=== PATIENT | female | born 1945 | race Caucasian/White ===

== ENCOUNTER 2020-03-25 02:16 | Inpatient (IN) | payer MEDICARE, SELFPAY ==
[2020-03-25] VITALS (18 sets, daily range): BP systolic 91–148; BP diastolic 39–60; PULSE 64–94; RESP 11–18; TEMP 35.9–37.2; O2SAT 00–99; BMI 28.0; BMI 28.5
--- NOTE | 2020-03-25 | CT_ITS ---
EXAMINATION: CT CHEST, ABDOMEN AND PELVIS WITHOUT CONTRAST CLINICAL INFORMATION: Shortness of breath. Abdominal pain. COMPARISON: Same day chest radiograph. TECHNIQUE: Contiguous axial thin section helical images of the chest, abdomen and pelvis were performed without oral or IV contrast. The data set was reformatted in the coronal and sagittal planes and reviewed on an independent workstation. Please note that evaluation for inflammatory and infectious processes is significantly limited due to the lack of IV contrast. The examination is also limited secondary to patient motion artifact. DLP: 339 mGy-cm. FINDINGS: The heart is of normal size. There is no pericardial effusion. There is neither mediastinal, hilar nor axillary lymphadenopathy. There are no chest wall masses. Review of lung windows demonstrates that there are no pneumothoraces. There is a large right pleural effusion with associated atelectasis to the right lower lobe. There are biapical manifestations of emphysema. The liver is of normal size and attenuation without focal lesions nor intrahepatic biliary ductal dilation. A normal gallbladder is identified. There is no wall thickening or discernible pericholecystic fluid. The spleen, pancreas, adrenal glands are unremarkable. Both kidneys are of normal size and attenuation without hydronephrosis or nephrolithiasis. There is no abdominal free fluid. There is neither mesenteric nor retroperitoneal lymphadenopathy. There is a moderate amount of stool throughout the colon; otherwise, unremarkable unopacified loops of small and large bowel are identified. There is no pelvic free fluid. A Archer catheter is present within the urinary bladder which is nearly empty. There is neither pelvic nor inguinal lymphadenopathy. Anasarca is noted within the pelvis and visualized proximal lower extremities. Bone windows: Neither sclerotic nor lytic bone lesions are identified. IMPRESSION: Significantly limited examination as stated above. The examination is limited in evaluation for inflammatory and infectious processes due to the lack of IV contrast. As well evaluation is significantly limited due to patient motion artifact. Large right pleural effusion with associated airspace disease. Moderate amount of stool throughout the colon. Anasarca. Automated exposure control (Care Dose) Adjustment of the mA and/or kv according to patient size (this includes techniques or standardized protocols for targeted exams where dose is matched to indication / reason for exam; i.e. extremities or head).
--- NOTE | 2020-03-25 | XR_ITS ---
EXAMINATION: CHEST 1 VIEW CLINICAL INFORMATION: Cough. COMPARISON: 07/28/2018. TECHNIQUE: An AP view of the chest is provided. FINDINGS: The cardiac silhouette is not enlarged. The mediastinal and hilar contours are unremarkable. There are no pneumothoraces. There is a moderate right pleural effusion with associated airspace disease. The osseous structures are stable. IMPRESSION: Moderate right pleural effusion with associated airspace disease.
--- NOTE | 2020-03-25 | ECG_ITS ---
Test Reason : STROKE Blood Pressure : / mmHG Vent. Rate : 067 BPM Atrial Rate : 067 BPM P-R Int : 154 ms QRS Dur : 174 ms QT Int : 506 ms P-R-T Axes : 073 199 011 degrees QTc Int : 534 ms Poor data quality, interpretation may be adversely affected Normal sinus rhythm Right bundle branch block Inferior infarct (cited on or before 25-MAR-2020) Anteroseptal infarct (cited on or before 25-MAR-2020) Abnormal ECG When compared with ECG of 25-MAR-2020 02:54, Sinus rhythm has replaced Ectopic atrial rhythm Serial changes of Anteroseptal infarct Present Referred By: Melania Hassan Electronically Signed By:EMILIO KENDRICK
--- NOTE | 2020-03-25 02:17 | PC.NURSE ---
PT PRESENTS VIA EMS FOR STROKE ALERT. PER EMS PT WAS HELPING HER IN BATHROOM WHEN HER LEGS GAVE OUT. DENIES HEAD STRIKE, DENIES LOC. EMS CALLED FOR LIFT ASSIST. PT FOUND TO HAVE RIGHT SIDED WEAKNESS AND SLURRED SPEECH UPON EMS ARRIVAL MOSTLY RESOLVING BY ARRIVAL TO ED. DENIES PREVIOUS STROKE HX. ON DAILY ASPIRIN. THIS RN TO CT WITH PT UPON ARRIVAL. PT A&O TO PERSON PLACE AND SITUATION. REPORTS YEAR TO BE 2013. DENIES PAIN, STATES SHE FEELS WEAKER THAN NORMAL. EQUAL HANDGRASPS BILATERALLY, FACIAL SYMMETRY. SIGNIFICANT PITTING EDEMA NOTED TO BLE. +2-3 BILATERALLY.
--- NOTE | 2020-03-25 02:18 | ECG_ITS ---
Test Reason : STROKE Blood Pressure : / mmHG Vent. Rate : 061 BPM Atrial Rate : 061 BPM P-R Int : 176 ms QRS Dur : 172 ms QT Int : 488 ms P-R-T Axes : 133 180 -16 degrees QTc Int : 491 ms Suspect limb lead reversal, interpretation assumes no reversal Unusual P axis, possible ectopic atrial rhythm Right bundle branch block Cannot rule out Inferior infarct , age undetermined Anteroseptal infarct , age undetermined Abnormal ECG When compared with ECG of 28-JUL-2018 21:28, Ectopic atrial rhythm has replaced Sinus rhythm Vent. rate has decreased BY 47 BPM Right bundle branch block is now Present Anteroseptal infarct is now Present Referred By: Melania Hassan Electronically Signed By:EMILIO KENDRICK
--- NOTE | 2020-03-25 02:18 | CT_ITS ---
EXAMINATION: CT HEAD WITHOUT CONTRAST CLINICAL INFORMATION: Right-sided weakness. COMPARISON: 01/16/2017. TECHNIQUE: Contiguous helical images of the brain were obtained without IV contrast. Multiplanar reconstructions were performed. DLP: 747 mGy-cm. FINDINGS: There are no pathologic extra-axial fluid collections. The lateral, third, fourth ventricles are prominent, though stable, age-appropriate and concordant with the appearance of the sulci. There is no evidence for acute intraparenchymal hemorrhage or infarct. There is periventricular low-attenuation indicative of small vessel disease. There is neither mass nor mass effect. There is no shift of midline structures. The paranasal sinuses and mastoid air cells are clear. There are no osseous lesions. IMPRESSION: No evidence for acute intracranial injury. Stable age-appropriate appearance of the brain. The aforementioned was communicated to Dr. Hassan at 0245 hours. Automated exposure control (Care Dose) Adjustment of the mA and/or kv according to patient size (this includes techniques or standardized protocols for targeted exams where dose is matched to indication / reason for exam; i.e. extremities or head).
[2020-03-25 02:25] LABS: Glucose, Whole Blood 130 mg/dL (60-115); Prothrombin Time Whole Bld POC 13.4 sec (11.1-13.5); ~PT, ~INR - Anti Coag Clinic 1.1 (0.9-1.1)
--- NOTE | 2020-03-25 03:03 | ED.NEUROSD ---
HPI - Neuro Symptoms/Deficit General Chief Complaint: Stroke Stated Complaint: STROKE Time Seen by Provider: 03/25/20 02:17 Source: patient, family and EMS Mode of arrival: EMS History of Present Illness HPI Narrative: This is a 74-year-old female with multiple medical comorbidities to include Parkinson's, diabetes who presents via EMS with presenting complaints as per EMS that they were called for a lift assist at the home and then they felt that the patient was noted to have slurred speech and right-sided weakness that on arrival during evaluation they feel has resolved. EMS states that they assisted the patient in her bathroom at home. Later information gathered from the at the bedside and he states that patient has been like this all day and says that this morning she experienced an inability to get to the toilet from her wheelchair and was slumped over and so the called EMS for assistance. He states that she has not had oral intake all day yesterday and that she has canceled multiple doctors appointments. Related Data Home Medications Medication Instructions Recorded Confirmed amitriptyline 1 tab PO BID 03/25/20 03/25/20 aspirin 81 mg PO DAILY 03/25/20 03/25/20 atorvastatin 1 tab PO DAILY 03/25/20 03/25/20 carbidopa-levodopa 1 tab PO TID 03/25/20 03/25/20 coenzyme Q10 [CoQ-10] 200 mg PO DAILY 03/25/20 03/25/20 irehvurniug-ycmdfvtcm-myavlmjl 1 puff INHALATION DAILY 03/25/20 03/25/20 [Trelegy Ellipta] gabapentin 1 tab PO BEDTIME 03/25/20 03/25/20 insulin glargine U-300 conc 13 unit SUBCUT DAILY 03/25/20 03/25/20 [Toujeo SoloStar U-300 Insulin] lisinopril 1 tab PO DAILY 03/25/20 03/25/20 metoprolol tartrate 1 tab PO BID 03/25/20 03/25/20 metoprolol tartrate 1 tab PO BID 03/25/20 03/25/20 multivitamin 1 tab PO DAILY 03/25/20 03/25/20 omeprazole 1 cap PO BID 03/25/20 03/25/20 polyethylene glycol 3350 [Miralax] 17 g PO DAILY 03/25/20 03/25/20 primidone 1 tab PO DAILY 03/25/20 03/25/20 sennosides [senna] 8.6 mg PO BID 03/25/20 03/25/20 sitagliptin-metformin [Janumet XR] 2 tab PO BEDTIME 03/25/20 03/25/20 Allergies Allergy/AdvReac Type Severity Reaction Status Date / Time Iodinated Contrast Media Allergy Unknown RASH Verified 03/25/20 03:55 [CONTRAST, IV] morphine [Morphine] Allergy Unknown RESP. Verified 03/25/20 03:55 ARREST, anaphylaxis IVP dye Allergy Unknown kidney Uncoded 12/02/19 00:00 failure Review of Systems Review of Systems: Pertinent positives and negatives as stated in HPI 10 point review of systems is otherwise negative. [facility] Past Medical History Medical History Nocturnal oxygen desaturation Parkinson disease Social History Social History Advance Directives: No Physical Exam Vital Signs and I&O and Narrative: Vital Signs and I&O: Vital Signs Temp 98.6 F 03/25/20 08:47 Pulse 67 03/25/20 08:47 Resp 16 03/25/20 08:47 BP 123/60 03/25/20 08:47 Pulse Ox 96 03/25/20 07:33 Intake & Output 03/24/20 03/25/20 03/25/20 18:59 06:59 18:59 Intake Total 1050 / 1050 Balance 1050 / 1050 Weight 69.6 kg Intake: Intake, IV Amoun t 1050 / 1050 0.9 % Sodium C hloride 1,000 ml 1000 / 1000 @ Wide Open IV .Q0M STA Rx#: [id number] cefTRIAXone so dium 1 gm In 0.9 50 / 50 % Sodium Chlor gregorio 50 ml @ 100 mls/hr IV ONCE ONE Rx#: [id number] Body Mass Index 28.0 VITAL SIGNS: Reviewed. GENERAL: Well developed, no acute distress, drowsy. HEAD: Normocephalic/atraumatic, EYES: PERRLA, EOMI intact without pain, no nystagmus/pallor/icterus noted EARS: Ext canals without abnormality, TMs non-bulging and non-erythematous NOSE: Nares patent bilateral OROPHARYNX: no oral lesions noted, posterior pharynx clear and non-erythematous dry mucosa NECK: Supple, no adenopathy LUNGS: Decreased breath sounds on the right and audible ronchi without wheeze. SpO2<96 on 4L nasal cannula> CARDIOVASCULAR: Regular rate, no noted murmurs, no JVD but bilateral full length lower leg edema noted ABDOMEN: Soft, non-tender, there is a noted ventral hernia that is easily reducible and no evidence to suggest incarceration/strangulation No rigidity. No guarding. No palpable masses or hernias noted MUSCULOSKELETAL: No tenderness, deformities, or effusions noted on gross inspection. EXTREMITIES: No cyanosis, clubbing or edema. SKIN: Inspection of the skin reveals no rashes, ulcerations, jaundice, pallor, or petechiae. NEUROLOGIC: Drowsy, but oriented x 3. Strength and sensation to light touch were grossly intact and initial NIHSS Course Course Hospital Course: On initial evaluation patient's NIH stroke scale was noted to be 2 and reported be improving from initial observation without gross deficits at present and so not felt to be a tPA candidate and highly doubt ischemic event at this point. On review of CT scan there were no acute intracranial pathologies noted. Due to patient's persistent hypotension in combination with hypothermia she was empirically started on the sepsis protocol due to hypothermia and hypotension in conjunction with suspected pulmonary etiology. There were initial concerns for fluid overload given the appearance patient's bilateral lower extremities and so initial IV fluid resuscitation was withheld, however lab work and antibiotics were initiated. On further evaluation of patient's clinical status, the decision was made to pursue this sepsis IV fluids which were calculated to be 2.1 L. Reevaluation(s) Reevaluation #1: Despite antibiotics and fluid resuscitation patient continued to have persistent hypotension while temperature and remaining objective parameters continue to improve. A CT scan to better evaluate chest/abdomen /pelvis but there were no acute findings within the abdomen and a large right-sided pleural effusion was again demonstrated. Reevaluation #2: There is a possibility that patient may have had a vasovagal episode or that this is a mixture of medication effect. During the placement of her central line and after having received 100 mg of hydrocortisone patient's level of alertness drastically improved but with only mild improvement Of blood pressure. the chest x-ray to confirm placement of the right IJ demonstrated the tip in the left innominate. This case was discussed with the ICU pyrometer operator who is agreeable for admission. Lactic acid value did show improvement after fluid resuscitation, but little evidence to further support a sepsis etiology or acute intracranial pathology. In addition, patient was treated for hyperkalemia with calcium gluconate / insulin/ D 50 and on repeat lab work there is noted improvement. Procedures Central Line Placement Right IJ: Time Out Performed: Yes Patient Placed on Monitor/Pulse Ox: Yes MD Prep: mask, gown and gloves Central Line Prep: Chlorhexidine scrub Ultrasound Used for Placement: Yes Central Line Lumen Inserted: triple Post Procedure: sutured in place, good blood return, all ports aspirated, flushed, capped and sterile dressing applied Post Procedure X-Ray: tip of catheter in good position and no pneumothorax seen Patient Tolerated Procedure: well Complications: none MDM - Neuro Symptoms/Deficit MDM Narrative Medical decision making narrative: Sepsis, stroke, metabolic derangement Medical Records Attestation: I reviewed the patient's medical records. Lab Data Attestation: I reviewed the patient's lab results. Result diagrams: 03/25/20 03:23 03/25/20 06:48 Labs: Lab Results 03/25/20 03/25/20 03/25/20 Range/Units 02:20 02:20 03:23 WBC 7.6 (4.8-10.8) X10*3/uL RBC 3.92 L (4.20-5.50) X10*6/uL Hgb 11.5 L (12.0-16.0) g/dl Hct 36.5 L (37-47) % MCV 93.1 (80-98) fL MCH 29.3 (27.0-33.0) pg MCHC 31.5 (31.0-35.0) g/dl RDW 18.8 H (11.0-16.0) % Plt Count 272 (160-400) X10*3/uL MPV 10.3 (9.4-12.3) fL Immature Gran % (Auto) 0.4 (0.0-0.4) % Neut % (Auto) 74.2 H (45-73) % Lymph % (Auto) 15.4 L (20-40) % [place] % (Auto) 8.2 (2-11) % Eos % (Auto) 1.1 (0-4) % Baso % (Auto) 0.7 (0-2) % Neut # (Auto) 5.7 (2.0-8.3) X10*3/uL Lymph # (Auto) 1.2 (1.2-4.9) X10*3/uL [place] # (Auto) 0.6 (0.1-1.2) X10*3/uL Eos # (Auto) 0.1 (0.0-0.4) X10*3/uL Baso # (Auto) 0.1 (0.0-0.2) X10*3/uL Abs Immat Gran (auto) 0.03 (0.00-0.03) X10*3/uL Absolute Nucleated RBC 0.000 (0.0-0.012) X10*3/uL Nucleated RBC % (auto) 0.0 (0.0-0.2) /100WBC PT (10.8-13.0) SEC Whole Blood PT 13.4 (11.1-13.5) sec INR (0.9-1.1) Whole Blood INR 1.1 (0.9-1.1) APTT (24.1-38.0) SEC VBG pH (7.32-7.43) VBG pCO2 mmhg VBG Oxygen Liters/Min VBG pO2 mmhg VBG HCO3 mmol/L VBG O2 Saturation % VBG Base Excess mmol/L Sodium (135-145) mmol/L Potassium (3.3-5.1) mmol/l Chloride (96-108) mmol/L Carbon Dioxide (22-29) mmol/L Anion Gap (12-20) BUN (9-16) mg/dL Creatinine (0.5-1.4) mg/dL Estim Creat Clear Calc Estimated GFR POC Glucose 130 H (60-115) mg/dL Random Glucose (60-115) mg/dL Lactic Acid (0.5-2.0) mmol/L Lactic Acid Fup @ 2Hr (0.5-2.0) mmol/L Calcium (8.4-10.2) mg/dL Total Bilirubin (0.0-1.0) mg/dL AST (5-31) U/L ALT (0-31) U/L Alkaline Phosphatase (39-117) U/L Total Creatine Kinase (26-140) U/L Troponin I High Sens (<3.5-17.0) ng/L Total Protein (6.5-8.0) g/dL Albumin (3.5-5.0) g/dL TSH (0.32-4.0) mIU/mL Urine Color Urine Appearance Urine pH (5.0-8.0) Ur Specific [place] (1.005-1.025) Urine Protein (NEG-TRACE) MG/DL Urine Glucose (UA) (NEG) MG/DL Urine Ketones (NEG) MG/DL Urine Blood (NEG) Urine Nitrite (NEG) Ur Leukocyte Esterase (NEG) Urine RBC (0) /HPF Urine WBC (0-4) /HPF Ur Squamous Epith Cells /LPF Urine Bacteria /LPF 03/25/20 03/25/20 03/25/20 Range/Units 03:23 03:23 03:23 WBC (4.8-10.8) X10*3/uL RBC (4.20-5.50) X10*6/uL Hgb (12.0-16.0) g/dl Hct (37-47) % MCV (80-98) fL MCH (27.0-33.0) pg MCHC (31.0-35.0) g/dl RDW (11.0-16.0) % Plt Count (160-400) X10*3/uL MPV (9.4-12.3) fL Immature Gran % (Auto) (0.0-0.4) % Neut % (Auto) (45-73) % Lymph % (Auto) (20-40) % [place]he % (Auto) (2-11) % Eos % (Auto) (0-4) % Baso % (Auto) (0-2) % Neut # (Auto) (2.0-8.3) X10*3/uL Lymph # (Auto) (1.2-4.9) X10*3/uL [place] # (Auto) (0.1-1.2) X10*3/uL Eos # (Auto) (0.0-0.4) X10*3/uL Baso # (Auto) (0.0-0.2) X10*3/uL Abs Immat Gran (auto) (0.00-0.03) X10*3/uL Absolute Nucleated RBC (0.0-0.012) X10*3/uL Nucleated RBC % (auto) (0.0-0.2) /100WBC PT (10.8-13.0) SEC Whole Blood PT (11.1-13.5) sec INR (0.9-1.1) Whole Blood INR (0.9-1.1) APTT (24.1-38.0) SEC VBG pH (7.32-7.43) VBG pCO2 mmhg VBG Oxygen Liters/Min VBG pO2 mmhg VBG HCO3 mmol/L VBG O2 Saturation % VBG Base Excess mmol/L Sodium 130 L (135-145) mmol/L Potassium 6.5 H* (3.3-5.1) mmol/l Chloride 96 (96-108) mmol/L Carbon Dioxide 24 (22-29) mmol/L Anion Gap 17 (12-20) BUN 29 H (9-16) mg/dL Creatinine 1.47 H (0.5-1.4) mg/dL Estim Creat Clear Calc 31.5 Estimated GFR 35 POC Glucose (60-115) mg/dL Random Glucose 142 H (60-115) mg/dL Lactic Acid (0.5-2.0) mmol/L Lactic Acid Fup @ 2Hr (0.5-2.0) mmol/L Calcium 8.8 (8.4-10.2) mg/dL Total Bilirubin 0.4 (0.0-1.0) mg/dL AST 16 (5-31) U/L ALT < 6 (0-31) U/L Alkaline Phosphatase 63 (39-117) U/L Total Creatine Kinase 50 51 (26-140) U/L Troponin I High Sens 17.2 H (<3.5-17.0) ng/L Total Protein 6.4 L (6.5-8.0) g/dL Albumin 3.7 (3.5-5.0) g/dL TSH 4.66 H (0.32-4.0) mIU/mL Urine Color Urine Appearance Urine pH (5.0-8.0) Ur Specific [place] (1.005-1.025) Urine Protein (NEG-TRACE) MG/DL Urine Glucose (UA) (NEG) MG/DL Urine Ketones (NEG) MG/DL Urine Blood (NEG) Urine Nitrite (NEG) Ur Leukocyte Esterase (NEG) Urine RBC (0) /HPF Urine WBC (0-4) /HPF Ur Squamous Epith Cells /LPF Urine Bacteria /LPF 03/25/20 03/25/20 03/25/20 Range/Units 03:24 03:24 03:24 WBC (4.8-10.8) X10*3/uL RBC (4.20-5.50) X10*6/uL Hgb (12.0-16.0) g/dl Hct (37-47) % MCV (80-98) fL MCH (27.0-33.0) pg MCHC (31.0-35.0) g/dl RDW (11.0-16.0) % Plt Count (160-400) X10*3/uL MPV (9.4-12.3) fL Immature Gran % (Auto) (0.0-0.4) % Neut % (Auto) (45-73) % Lymph % (Auto) (20-40) % [place] % (Auto) (2-11) % Eos % (Auto) (0-4) % Baso % (Auto) (0-2) % Neut # (Auto) (2.0-8.3) X10*3/uL Lymph # (Auto) (1.2-4.9) X10*3/uL [place] # (Auto) (0.1-1.2) X10*3/uL Eos # (Auto) (0.0-0.4) X10*3/uL Baso # (Auto) (0.0-0.2) X10*3/uL Abs Immat Gran (auto) (0.00-0.03) X10*3/uL Absolute Nucleated RBC (0.0-0.012) X10*3/uL Nucleated RBC % (auto) (0.0-0.2) /100WBC PT 13.6 H (10.8-13.0) SEC Whole Blood PT (11.1-13.5) sec INR 1.1 (0.9-1.1) Whole Blood INR (0.9-1.1) APTT 35.0 (24.1-38.0) SEC VBG pH (7.32-7.43) VBG pCO2 mmhg VBG Oxygen Liters/Min VBG pO2 mmhg VBG HCO3 mmol/L VBG O2 Saturation % VBG Base Excess mmol/L Sodium (135-145) mmol/L Potassium (3.3-5.1) mmol/l Chloride (96-108) mmol/L Carbon Dioxide (22-29) mmol/L Anion Gap (12-20) BUN (9-16) mg/dL Creatinine (0.5-1.4) mg/dL Estim Creat Clear Calc Estimated GFR POC Glucose (60-115) mg/dL Random Glucose (60-115) mg/dL Lactic Acid 3.2 H* (0.5-2.0) mmol/L Lactic Acid Fup @ 2Hr (0.5-2.0) mmol/L Calcium (8.4-10.2) mg/dL Total Bilirubin (0.0-1.0) mg/dL AST (5-31) U/L ALT (0-31) U/L Alkaline Phosphatase (39-117) U/L Total Creatine Kinase (26-140) U/L Troponin I High Sens (<3.5-17.0) ng/L Total Protein (6.5-8.0) g/dL Albumin (3.5-5.0) g/dL TSH (0.32-4.0) mIU/mL Urine Color YELLOW Urine Appearance HAZY Urine pH 5.5 (5.0-8.0) Ur Specific [place] 1.020 (1.005-1.025) Urine Protein NEG (NEG-TRACE) MG/DL Urine Glucose (UA) NEG (NEG) MG/DL Urine Ketones NEG (NEG) MG/DL Urine Blood NEG (NEG) Urine Nitrite NEG (NEG) Ur Leukocyte Esterase 1+ H (NEG) Urine RBC 0 (0) /HPF Urine WBC 5-9 H (0-4) /HPF Ur Squamous Epith Cells 4+ /LPF Urine Bacteria 1+ /LPF 03/25/20 03/25/20 03/25/20 Range/Units 05:57 05:57 06:43 WBC (4.8-10.8) X10*3/uL RBC (4.20-5.50) X10*6/uL Hgb (12.0-16.0) g/dl Hct (37-47) % MCV (80-98) fL MCH (27.0-33.0) pg MCHC (31.0-35.0) g/dl RDW (11.0-16.0) % Plt Count (160-400) X10*3/uL MPV (9.4-12.3) fL Immature Gran % (Auto) (0.0-0.4) % Neut % (Auto) (45-73) % Lymph % (Auto) (20-40) % [place] % (Auto) (2-11) % Eos % (Auto) (0-4) % Baso % (Auto) (0-2) % Neut # (Auto) (2.0-8.3) X10*3/uL Lymph # (Auto) (1.2-4.9) X10*3/uL [place] # (Auto) (0.1-1.2) X10*3/uL Eos # (Auto) (0.0-0.4) X10*3/uL Baso # (Auto) (0.0-0.2) X10*3/uL Abs Immat Gran (auto) (0.00-0.03) X10*3/uL Absolute Nucleated RBC (0.0-0.012) X10*3/uL Nucleated RBC % (auto) (0.0-0.2) /100WBC PT (10.8-13.0) SEC Whole Blood PT (11.1-13.5) sec INR (0.9-1.1) Whole Blood INR (0.9-1.1) APTT (24.1-38.0) SEC VBG pH 7.29 L (7.32-7.43) VBG pCO2 53 mmhg VBG Oxygen Liters/Min 4 L VBG pO2 91 mmhg VBG HCO3 25 mmol/L VBG O2 Saturation 95.0 % VBG Base Excess -2.2 mmol/L Sodium (135-145) mmol/L Potassium (3.3-5.1) mmol/l Chloride (96-108) mmol/L Carbon Dioxide (22-29) mmol/L Anion Gap (12-20) BUN (9-16) mg/dL Creatinine (0.5-1.4) mg/dL Estim Creat Clear Calc Estimated GFR POC Glucose 149 H (60-115) mg/dL Random Glucose (60-115) mg/dL Lactic Acid (0.5-2.0) mmol/L Lactic Acid Fup @ 2Hr 2.7 H* (0.5-2.0) mmol/L Calcium (8.4-10.2) mg/dL Total Bilirubin (0.0-1.0) mg/dL AST (5-31) U/L ALT (0-31) U/L Alkaline Phosphatase (39-117) U/L Total Creatine Kinase (26-140) U/L Troponin I High Sens (<3.5-17.0) ng/L Total Protein (6.5-8.0) g/dL Albumin (3.5-5.0) g/dL TSH (0.32-4.0) mIU/mL Urine Color Urine Appearance Urine pH (5.0-8.0) Ur Specific [place] (1.005-1.025) Urine Protein (NEG-TRACE) MG/DL Urine Glucose (UA) (NEG) MG/DL Urine Ketones (NEG) MG/DL Urine Blood (NEG) Urine Nitrite (NEG) Ur Leukocyte Esterase (NEG) Urine RBC (0) /HPF Urine WBC (0-4) /HPF Ur Squamous Epith Cells /LPF Urine Bacteria /LPF 03/25/20 03/25/20 Range/Units 06:48 06:48 WBC (4.8-10.8) X10*3/uL RBC (4.20-5.50) X10*6/uL Hgb (12.0-16.0) g/dl Hct (37-47) % MCV (80-98) fL MCH (27.0-33.0) pg MCHC (31.0-35.0) g/dl RDW (11.0-16.0) % Plt Count (160-400) X10*3/uL MPV (9.4-12.3) fL Immature Gran % (Auto) (0.0-0.4) % Neut % (Auto) (45-73) % Lymph % (Auto) (20-40) % [place] % (Auto) (2-11) % Eos % (Auto) (0-4) % Baso % (Auto) (0-2) % Neut # (Auto) (2.0-8.3) X10*3/uL Lymph # (Auto) (1.2-4.9) X10*3/uL [place] # (Auto) (0.1-1.2) X10*3/uL Eos # (Auto) (0.0-0.4) X10*3/uL Baso # (Auto) (0.0-0.2) X10*3/uL Abs Immat Gran (auto) (0.00-0.03) X10*3/uL Absolute Nucleated RBC (0.0-0.012) X10*3/uL Nucleated RBC % (auto) (0.0-0.2) /100WBC PT (10.8-13.0) SEC Whole Blood PT (11.1-13.5) sec INR (0.9-1.1) Whole Blood INR (0.9-1.1) APTT (24.1-38.0) SEC VBG pH (7.32-7.43) VBG pCO2 mmhg VBG Oxygen Liters/Min VBG pO2 mmhg VBG HCO3 mmol/L VBG O2 Saturation % VBG Base Excess mmol/L Sodium 132 L (135-145) mmol/L Potassium 5.3 H (3.3-5.1) mmol/l Chloride 100 (96-108) mmol/L Carbon Dioxide 24 (22-29) mmol/L Anion Gap 13 (12-20) BUN 29 H (9-16) mg/dL Creatinine 1.42 H (0.5-1.4) mg/dL Estim Creat Clear Calc 32.7 Estimated GFR 36 POC Glucose (60-115) mg/dL Random Glucose 161 H (60-115) mg/dL Lactic Acid (0.5-2.0) mmol/L Lactic Acid Fup @ 2Hr (0.5-2.0) mmol/L Calcium 8.2 L (8.4-10.2) mg/dL Total Bilirubin 0.2 (0.0-1.0) mg/dL AST 14 (5-31) U/L ALT 6 (0-31) U/L Alkaline Phosphatase 51 (39-117) U/L Total Creatine Kinase (26-140) U/L Troponin I High Sens 13.3 (<3.5-17.0) ng/L Total Protein 5.3 L (6.5-8.0) g/dL Albumin 3.1 L (3.5-5.0) g/dL TSH (0.32-4.0) mIU/mL Urine Color Urine Appearance Urine pH (5.0-8.0) Ur Specific [place] (1.005-1.025) Urine Protein (NEG-TRACE) MG/DL Urine Glucose (UA) (NEG) MG/DL Urine Ketones (NEG) MG/DL Urine Blood (NEG) Urine Nitrite (NEG) Ur Leukocyte Esterase (NEG) Urine RBC (0) /HPF Urine WBC (0-4) /HPF Ur Squamous Epith Cells /LPF Urine Bacteria /LPF ECG Data Pacemaker model: Sinus rhythm, HR-67, RBBB NIH Stroke Scale Internal: Initial- Upon Arrival Level of Consciousness: Not Alert; but arousable by minor stimulation Level of Consciousness Questions: Answers both questions correctly Level of Consciousness Commands: Performs both tasks correctly Best Gaze: Normal Visual: No visual loss Facial Palsy: Minor paralyis (Questionable) Motor Arm (Right): No drift Motor Arm (Left): No drift Motor Leg (Right): No drift Motor Leg (Left): No drift Limb Ataxia: Absent Sensory: Normal Best Language: No aphasia Dysarthia: Normal Extinction and Inattention: No abnormality Score: 2 Discharge Plan Discharge Clinical Impression: YELENA (acute kidney injury), Pleural effusion on right Altered mental status Qualifiers: Altered mental status type: unspecified Qualified Code(s): R41.82 - Altered mental status, unspecified Patient Disposition: Admitted As Inpatient
[2020-03-25 03:37] LABS: MANUAL DIFF FLAG NO
[2020-03-25 03:44] LABS: Basophils Absolute Auto 0.1 X10*3/uL (0.0-0.2); Basophils Percent Auto 0.7 % (0-2); Eosinophils Absolute Auto 0.1 X10*3/uL (0.0-0.4); Eosinophils Percent Auto 1.1 % (0-4); Hematocrit 36.5 % (37-47); Hemoglobin 11.5 g/dl (12.0-16.0); Imm Gran Abs Auto 0.03 X10*3/uL (0.00-0.03); Imm Gran Pct Auto 0.4 % (0.0-0.4); Lymphocytes Absolute Auto 1.2 X10*3/uL (1.2-4.9); Lymphocytes Percent Auto 15.4 % (20-40); Mean Corpuscular HGB Conc 31.5 g/dl (31.0-35.0); Mean Corpuscular Hemoglobin 29.3 pg (27.0-33.0); Mean Corpuscular Volume 93.1 fL (80-98); Mean Platelet Volume 10.3 fL (9.4-12.3); Monocytes Absolute Auto 0.6 X10*3/uL (0.1-1.2); Monocytes Percent Auto 8.2 % (2-11); Neutrophils Absolute Auto 5.7 X10*3/uL (2.0-8.3); Neutrophils Percent Auto 74.2 % (45-73); Platelet Count 272 X10*3/uL (160-400); Red Blood Count 3.92 X10*6/uL (4.20-5.50); Red Cell Distribution Width 18.8 % (11.0-16.0); White Blood Count 7.6 X10*3/uL (4.8-10.8)
[2020-03-25 03:45] LABS: Glucose Urine UA NEG (NEG); Leukocyte Esterase Urine 1+ (NEG); Nitrite Urine NEG (NEG); PH 5.5 (5.0-8.0); Urine Blood NEG (NEG); Urine Ketones NEG (NEG); Urine Protein NEG (NEG-TRACE)
[2020-03-25 03:46] LABS: Appearance Urine HAZY; Color Urine YELLOW
[2020-03-25 03:51] LABS: Bacteria Urine 1+ /LPF; INTERNATIONAL NORM RATIO 1.1 (0.9-1.1); Prothrombin Time 13.6 SEC (10.8-13.0); RBC Urine 0 /HPF (0); Squamous Epithelial Cell Urine 4+ /LPF
[2020-03-25] MEDS: cefTRIAXone sodium 1 GM in 0.9 % Sodium Chloride 50 ML IV (03:56)
[2020-03-25] MEDS: 0.9 % Sodium Chloride 1,000 ML 999 ML IV (03:56)
[2020-03-25 04:10] LABS: Lactic Acid 3.2 mmol/L (0.5-2.0)
[2020-03-25 04:11] LABS: Alanine Aminotransferase < 6 U/L (0-31); Albumin Level 3.7 g/dL (3.5-5.0); Alkaline Phosphatase 63 U/L (39-117); Anion Gap 17 (12-20); Aspartate Amino Transferase 16 U/L (5-31); Bilirubin Total 0.4 mg/dL (0.0-1.0); Blood Urea Nitrogen 29 mg/dL (9-16); Calcium 8.8 mg/dL (8.4-10.2); Carbon Dioxide 24 mmol/L (22-29); Chloride 96 mmol/L (96-108); Creatinine Clr Calc Pharmacy 31.5; Estimated Glomerular Filt Rate 35; Glucose Random 142 mg/dL (60-115); Sodium 130 mmol/L (135-145); Total Protein 6.4 g/dL (6.5-8.0)
[2020-03-25 04:22] LABS: Potassium 6.5 mmol/l (3.3-5.1); Troponin-I High Sensitivity 17.2 ng/L (<3.5-17.0)
[2020-03-25 04:24] LABS: Stroke Lab Use COMPLETE
--- NOTE | 2020-03-25 04:31 | PC.NURSE ---
Pt changed into hospital attire. labs, culture drawn and urine sent. Archer placed with temperature.
--- NOTE | 2020-03-25 04:52 | PC.NURSE ---
No swallow evaluation completed due to patient being lethargic. provider anthony.
--- NOTE | 2020-03-25 04:57 | PC.NURSE ---
anna marie roach per provider.
[2020-03-25] MEDS: Calcium Gluconate/NaCl,Iso-Osm 1 GM/50 ML PLAST..BAG IV (05:11)
[2020-03-25 05:35] LABS: Reflex Lactate? Lactic Acid Added
[2020-03-25 06:02] LABS: Pt Ventilation O2% Venous 4 L
[2020-03-25] MEDS: SODIUM CHLORIDE 1000 ML IV (06:07)
[2020-03-25] MEDS: Insulin Regular, Human 100 UNIT/ML 3 ML VIAL 10 UNIT IVPUSH (06:08)
[2020-03-25 06:09] LABS: Base Excess VBG -2.2 mmol/L; HCO3 VBG 25 mmol/L; PCO2 VBG 53 mmhg; PO2 VBG 91 mmhg; pH VBG 7.29 (7.32-7.43)
--- NOTE | 2020-03-25 06:33 | PC.NURSE ---
DELAY IN PT FLUIDS DUE TO DIFFICULT ACCESS. PROVIDER AWARE
[2020-03-25 06:48] LABS: Glucose, Whole Blood 149 mg/dL (60-115)
--- NOTE | 2020-03-25 07:18 | XR_ITS ---
EXAMINATION: XR CHEST CLINICAL INFORMATION: Post procedure. Right IJ COMPARISON: March 25, 2020 earlier in day TECHNIQUE: AP portable view of the chest was obtained. FINDINGS: Right internal jugular catheter tip appears to be into the distal left innominate vein. Into the distal left innominate vein. No pneumothorax is evident. There is a right pleural effusion with basilar disease likely related to atelectasis. The left hemithorax appears unremarkable. Heart normal size. No evidence of pulmonary edema. IMPRESSION: Continued right base pleural effusion and disease. Tip of right internal jugular catheter is seen directed towards the left innominate vein distal aspect. This critical result was discussed with Dr. Hassan at 8:15 AM on March 25, 2020 and it was ascertained that the content and urgency of the report was understood at the time of direct communication.
[2020-03-25 07:25] LABS: Troponin-I High Sensitivity 13.3 ng/L (<3.5-17.0)
[2020-03-25 07:30] LABS: Albumin Level 3.1 g/dL (3.5-5.0); Alkaline Phosphatase 51 U/L (39-117); Anion Gap 13 (12-20); Aspartate Amino Transferase 14 U/L (5-31); Bilirubin Total 0.2 mg/dL (0.0-1.0); Blood Urea Nitrogen 29 mg/dL (9-16); Carbon Dioxide 24 mmol/L (22-29); Chloride 100 mmol/L (96-108); Creatinine Clr Calc Pharmacy 32.7; Estimated Glomerular Filt Rate 36; Glucose Random 161 mg/dL (60-115); Potassium 5.3 mmol/l (3.3-5.1); Sodium 132 mmol/L (135-145); Total Protein 5.3 g/dL (6.5-8.0)
--- NOTE | 2020-03-25 07:40 | PC.NURSE ---
PT ZEV UPPER LUNGS - COARSE CONGESTION, ZEV LOWER LOBES DIMINISED.
[2020-03-25 07:43] LABS: Alanine Aminotransferase 6 U/L (0-31); Calcium 8.2 mg/dL (8.4-10.2)
[2020-03-25 08:00] LABS: Reflex Lactate? 2 Y
--- NOTE | 2020-03-25 08:00 | PC.NURSE ---
ZEV LOWER EXT 3-4= PITTING EDEMA NOTED.
[2020-03-25 08:31] LABS: Thyroid Stimulating Hormone 4.66 mIU/mL (0.32-4.0)
--- NOTE | 2020-03-25 08:33 | PC.NURSE ---
NURSE TO NURSE GIVEN TO TERRI (RN) ON ICU, AWAITING ADMISSION ORDERS FOR TRANSFER TO UNIT. PT AWARE OF PLAN OF CARE FOR TRANSFER TO ICU.
--- NOTE | 2020-03-25 08:54 | PC.NURSE ---
PT REPOSITION IN BED, PT STATES THAT SHE WANTED TO SIT UP AND WATCH/LISTEN TO TV, COCCYX AREA SLIGHTLY BORIS, NO OPEN AREAS NOTED.
--- NOTE | 2020-03-25 10:09 | PC.NURSE ---
PT TRANSFERED TO ICU AT 0955.
[2020-03-25 11:32] LABS: ~Lactic Acid-LAB USE ONLY 1.6 mmol/L (0.5-2.0)
--- NOTE | 2020-03-25 12:34 | PC.NURSE ---
Pt arrived to the unit at 1000. Pt alert & oriented to self, month, and place. Disoriented to situation and day. No headache. Hand grasps & foot pumps equal and strong. Face symmetrical. Pt oriented to unit. Call krause placed in reach. NSR. Lung sounds coarse throughout. 3L NC, sats in the high 90's. + BS X4Q. Hernia noted to center of abdomen. Archer draining yellow urine. Bilateral legs, ankle, & feet with 3+ pitting edema. Bilateral feet warm to touch. Buttocks red, blanchable, barrier cream applied & pt repo Q2H. #20 to R hand & R forearm, intact. TLC to R IJ intact, all ports flush well. MD to do bedside echo. No new orders at this time. Will continue to monitor.
--- NOTE | 2020-03-25 14:09 | PM.CCHP ---
History of Present Illness Date of Service: 03/25/20 Mrs. Stafford was admitted to ICU this morning with altered mental status and YELENA. The patient is a 74 yo F with h/o Parkinson's disease, diabetes, severe valvular heart disease with pulmonary hypertension, history of multiple abdominal surgeries which I believe was secondary to perforated diverticulitis, with resulting chronic large ventral hernia. She lives at home with her . At baseline, she can walk with a walker. She needs help dressing and bathing. After her puts her in the bathroom, she does her business by herself. He cuts up her food, but she feeds herself. Mental status bethea, at baseline, she is fully alert, oriented, appropriate, and animated. Over last couple of weeks, she has been increasingly lethargic, and she has been getting more edematous. Early this morning, she slipped to the floor from her wheelchair and the was unable to pick her up. EMS was called, and they anticipated a ?lift assist?. At the scene, however, they noted the patient to have slurred speech and thought that the patient had right-sided weakness. They therefore brought her to the [facility] as a stroke alert. By the time of arrival to the ED, the patient?s slurred speech and weakness had resolved. The also reported that the patient had been altered all day and had had no oral intake. He also indicated that she had canceled multiple appointments with her primary care doctor over the last 2 weeks because she just felt too weak. On arrival to the ED, the patient had no neurologic deficits. CT scan showed no acute intracranial pathology. The patient was mildly hypotensive, in the 90s. She was initially normothermic. White count in the ED was 7.6. BUN and creatinine were 29/1.47 (baseline creatinine about 0.7), potassium was 6.5, bicarb was 24. Initial lactate was 3.2. The patient was started on some IV fluids. After 3 hours, her temperature had dropped to 96.6 and she was still mildly hypotensive with a blood pressure of 91/39. For those reasons, she was started on the sepsis protocol and she was given antibiotics, including, ultimately, the prescribed 30 cc/kg of IV fluids, and she was sent for CT of the abdomen and chest, which showed no acute pathology, other than a large right-sided pleural effusion. She was given hydrocortisone 100 mg, and a central line was placed. Follow-up labs showed a potassium down to 5.3, creatinine down to 1.42, and lactic acid down to 2.7. A venous blood gas showed 7.29/53/-2. At some point in the ED, she was given Lasix 40 mg. She was then transferred to ICU for further w/u. In ICU, the patient is somnolent but easy to arouse and able to give me a fairly good history. She says that there?s nothing acutely wrong with her, she doesn?t feel any different today than she did yesterday. On exam, she looks chronically ill, but nontoxic. She?s breathing easy w Sat 98% on 3L NC. HR 71, SR, BP 119/51, Temp 98.4. She has 2 cm jugular venous distention at 30 degrees. Chest is CTA with a normal exp phase; decreased BS right side. RRR, normal S1 and S2, with a 1/6 low-pitched systolic murmur. Abdominal exam shows a large midline ventral hernia and multiple scars. She has good bowel sounds. The belly is nontender. She has 2+ peripheral edema, possible anasarca. Neuro exam is entirely nonfocal. She has delayed capillary refill in the toes of both feet. LABORATORY DATA: As below. ECHOCARDIOGRAM dated 10/13/2018 and [facility]: 1. Vigorous LV systolic function with no regional wall motion abnormalities, mild LVH, and ejection fraction greater than 80%. There is a midcavity obstruction with a peak gradient of 88 mm. 2. Right ventricular size and function grossly normal. 3. Left atrium is severely dilated, right atrium is dilated. 4. Aortic valve is moderately calcified. There is mild aortic regurgitation and moderate aortic stenosis, with peak gradient of 41mm and mean gradient of 22 mm. 5. Severe mitral annular calcification with mitral stenosis with gradient of 13 mm. 6. Pulmonary artery systolic pressure estimate is 96 mm. ECHOCARDIOGRAM done today by me. Image quality: Fair-good. Findings: 1. Unable to assess wall thickness. 2. Normal LV function with no regional wall motion abnormalities. EF at least 60%. 3. LV cavity size might be small. 4. RV cavity size is enlarged with RV:LV cavity ratio >1.0, possibly as high as 1.5. 5. Heavily calcified aortic valve, with gross aortic stenosis and 2+ AI by color anika. 6. Heavily calcified mitral valve, with 1+ MR by color flow. 7. 1-2 +TR with a broad continuous wave Doppler jet measuring 4.5 m/sec, gradient 81mm. 8. IVC measures 1.7cm, with minimal insp collapse. Estimated CVP 8cm. Estimated RVSP 89mm. IMPRESSION: This is a chronically ill 74-year-old woman with Parkinson's disease and severe valvular heart disease, with severe pulmonary hypertension. The history and exam and echo suggests that she has been developing progressive biventricular failure over the last 2 weeks. She now has acute kidney injury and a new right pleural effusion, with mild hypoxemia. Initial management should probably include diuresis. However, because of her complex valvular heart disease with severe pulmonary hypertension, my opinion is she should transferred to [facility] for heart failure management, and evaluation of her mitral and aortic valves. I have discussed her situation with Dr. Rivera at [facility] and he has accepted her in transfer. Please do not hesitate to call the ICU ([phone]) with any questions. I can be reached on my cell phone at [phone]. Time (including extensive chart rev and mult d/w family): 2+ hrs. [facility] Past Medical History Medical History Nocturnal oxygen desaturation Parkinson disease Social History Social History Household Members: Spouse Housing: House Do you presently have visiting nurse or other home services: No Smoking Status: Current every day smoker Tobacco Type: Cigarette Smoked in Last 30 Days: Yes Patient Interested in Nicotine Replacement: No Patient Given Instructions on How to Stop Smoking: No Date Education Initiated: 03/25/20 Second Hand Smoke Exposure: Yes Use of substances other than those prescribed or required for medical reasons: No Currently Displaying Signs/Symptoms of Drug Intoxication Withdrawal: No Have you been hit, kicked, punched, or otherwise hurt by someone within the past year? If so, by whom?: No Do you feel safe in your current relationship?: Yes Is there a partner from a previous relationship who is making you feel unsafe now?: No Are you made to feel afraid or neglected: No Advance Directives: No Do you have thoughts of harming others: None Do you have a plan to hurt others: No Plan Recently lost weight without trying: No service: No Current occupational status: retired Meds Allergies Allergy/AdvReac Type Severity Reaction Status Date / Time Iodinated Contrast Media Allergy Unknown RASH Verified 03/25/20 03:55 [CONTRAST, IV] morphine [Morphine] Allergy Unknown RESP. Verified 03/25/20 03:55 ARREST, anaphylaxis IVP dye Allergy Unknown kidney Uncoded 12/02/19 00:00 failure Home Medications Medication Instructions Recorded Confirmed Type Janumet XR 2 tab PO BEDTIME 03/25/20 03/25/20 History Toukorey NeumannoStar U-300 Insulin 13 unit SUBCUT DAILY 03/25/20 03/25/20 History Trelegy Ellipta 1 puff INHALATION DAILY 03/25/20 03/25/20 History amitriptyline 1 tab PO BID 03/25/20 03/25/20 History aspirin 81 mg PO DAILY 03/25/20 03/25/20 History atorvastatin 1 tab PO DAILY 03/25/20 03/25/20 History carbidopa-levodopa 1 tab PO TID 03/25/20 03/25/20 History coenzyme Q10 [CoQ-10] 200 mg PO DAILY 03/25/20 03/25/20 History gabapentin 1 tab PO BEDTIME 03/25/20 03/25/20 History lisinopril 1 tab PO DAILY 03/25/20 03/25/20 History metoprolol tartrate 1 tab PO BID 03/25/20 03/25/20 History metoprolol tartrate 1 tab PO BID 03/25/20 03/25/20 History multivitamin 1 tab PO DAILY 03/25/20 03/25/20 History omeprazole 1 cap PO BID 03/25/20 03/25/20 History polyethylene glycol 3350 [Miralax] 17 g PO DAILY 03/25/20 03/25/20 History primidone 1 tab PO DAILY 03/25/20 03/25/20 History sennosides [senna] 8.6 mg PO BID 03/25/20 03/25/20 History Physical Exam Vital Signs and I&O and Narrative: Vital Signs and I&O: Vital Signs Temp 98.2 F 03/25/20 13:51 Pulse 75 03/25/20 13:51 Resp 17 03/25/20 13:51 BP 148/55 H 03/25/20 13:51 Pulse Ox 94 03/25/20 13:51 Intake & Output 03/24/20 03/25/20 03/25/20 18:59 06:59 18:59 Intake Total 1050 / 1050 1250 / 1250 Output Total 210 / 210 Balance 1050 / 1050 1040 / 1040 Urine Output (Aver age ml/kg/hr) 0.25 Weight 69.6 kg 70.632 kg Intake: Intake, IV Amoun t 1050 / 1050 1250 / 1250 0.9 % Sodium C hloride 1,100 ml 1000 / 1000 1100 / 1100 @ Wide Open IV .Q0M STA Rx#: [id number] Calcium Glucon ate/NaCl,Iso-Osm 50 / 50 1 gm In 50 ml @ 50 mls/hr IV ONCE ONE Rx#:[id number] Hydrocortisone Sod Succ/PF 100 100 / 100 mg In 0.9 % So dium Chloride 100 ml @ 200 mls/h r IV ONCE ONE Rx #:[id number] cefTRIAXone so dium 1 gm In 0.9 50 / 50 % Sodium Chlor gregorio 50 ml @ 100 mls/hr IV ONCE ONE Rx#: [id number] Output: Output, Urine Am ount (Catheter) 210 / 210 Urethral 210 / 210 Other: Urine Color Straw Last Bowel Movem ent 03/24/20 Stool Bathroom Body Mass Index 28.5 Results Labs Labs: Laboratory Tests 03/25/20 03/25/20 03/25/20 02:20 02:20 03:23 WBC 7.6 RBC 3.92 L Hgb 11.5 L Hct 36.5 L MCV 93.1 MCH 29.3 MCHC 31.5 RDW 18.8 H Plt Count 272 MPV 10.3 Immature Gran % (Auto) 0.4 Neut % (Auto) 74.2 H Lymph % (Auto) 15.4 L [place] % (Auto) 8.2 Eos % (Auto) 1.1 Baso % (Auto) 0.7 Neut # (Auto) 5.7 Lymph # (Auto) 1.2 [place] # (Auto) 0.6 Eos # (Auto) 0.1 Baso # (Auto) 0.1 Abs Immat Gran (auto) 0.03 Absolute Nucleated RBC 0.000 Nucleated RBC % (auto) 0.0 PT Whole Blood PT 13.4 INR Whole Blood INR 1.1 APTT VBG pH VBG pCO2 VBG Oxygen Liters/Min VBG pO2 VBG HCO3 VBG O2 Saturation VBG Base Excess Sodium Potassium Chloride Carbon Dioxide Anion Gap BUN Creatinine Estim Creat Clear Calc Estimated GFR POC Glucose 130 H Random Glucose Lactic Acid Lactic Acid Fup @ 2Hr Lactic Acid Fup @ 4Hr Calcium Total Bilirubin AST ALT Alkaline Phosphatase Total Creatine Kinase Troponin I High Sens Total Protein Albumin TSH Urine Color Urine Appearance Urine pH Ur Specific [place] Urine Protein Urine Glucose (UA) Urine Ketones Urine Blood Urine Nitrite Ur Leukocyte Esterase Urine RBC Urine WBC Ur Squamous Epith Cells Urine Bacteria 03/25/20 03/25/20 03/25/20 03:23 03:23 03:23 WBC RBC Hgb Hct MCV MCH MCHC RDW Plt Count MPV Immature Gran % (Auto) Neut % (Auto) Lymph % (Auto) [place] % (Auto) Eos % (Auto) Baso % (Auto) Neut # (Auto) Lymph # (Auto) [place] # (Auto) Eos # (Auto) Baso # (Auto) Abs Immat Gran (auto) Absolute Nucleated RBC Nucleated RBC % (auto) PT Whole Blood PT INR Whole Blood INR APTT VBG pH VBG pCO2 VBG Oxygen Liters/Min VBG pO2 VBG HCO3 VBG O2 Saturation VBG Base Excess Sodium 130 L Potassium 6.5 H* Chloride 96 Carbon Dioxide 24 Anion Gap 17 BUN 29 H Creatinine 1.47 H Estim Creat Clear Calc 31.5 Estimated GFR 35 POC Glucose Random Glucose 142 H Lactic Acid Lactic Acid Fup @ 2Hr Lactic Acid Fup @ 4Hr Calcium 8.8 Total Bilirubin 0.4 AST 16 ALT < 6 Alkaline Phosphatase 63 Total Creatine Kinase 50 51 Troponin I High Sens 17.2 H Total Protein 6.4 L Albumin 3.7 TSH 4.66 H Urine Color Urine Appearance Urine pH Ur Specific [place] Urine Protein Urine Glucose (UA) Urine Ketones Urine Blood Urine Nitrite Ur Leukocyte Esterase Urine RBC Urine WBC Ur Squamous Epith Cells Urine Bacteria 03/25/20 03/25/20 03/25/20 03:24 03:24 03:24 WBC RBC Hgb Hct MCV MCH MCHC RDW Plt Count MPV Immature Gran % (Auto) Neut % (Auto) Lymph % (Auto) [place] % (Auto) Eos % (Auto) Baso % (Auto) Neut # (Auto) Lymph # (Auto) [place] # (Auto) Eos # (Auto) Baso # (Auto) Abs Immat Gran (auto) Absolute Nucleated RBC Nucleated RBC % (auto) PT 13.6 H Whole Blood PT INR 1.1 Whole Blood INR APTT 35.0 VBG pH VBG pCO2 VBG Oxygen Liters/Min VBG pO2 VBG HCO3 VBG O2 Saturation VBG Base Excess Sodium Potassium Chloride Carbon Dioxide Anion Gap BUN Creatinine Estim Creat Clear Calc Estimated GFR POC Glucose Random Glucose Lactic Acid 3.2 H* Lactic Acid Fup @ 2Hr Lactic Acid Fup @ 4Hr Calcium Total Bilirubin AST ALT Alkaline Phosphatase Total Creatine Kinase Troponin I High Sens Total Protein Albumin TSH Urine Color YELLOW Urine Appearance HAZY Urine pH 5.5 Ur Specific [place] 1.020 Urine Protein NEG Urine Glucose (UA) NEG Urine Ketones NEG Urine Blood NEG Urine Nitrite NEG Ur Leukocyte Esterase 1+ H Urine RBC 0 Urine WBC 5-9 H Ur Squamous Epith Cells 4+ Urine Bacteria 1+ 03/25/20 03/25/20 03/25/20 05:57 05:57 06:43 WBC RBC Hgb Hct MCV MCH MCHC RDW Plt Count MPV Immature Gran % (Auto) Neut % (Auto) Lymph % (Auto) [place] % (Auto) Eos % (Auto) Baso % (Auto) Neut # (Auto) Lymph # (Auto) [place] # (Auto) Eos # (Auto) Baso # (Auto) Abs Immat Gran (auto) Absolute Nucleated RBC Nucleated RBC % (auto) PT Whole Blood PT INR Whole Blood INR APTT VBG pH 7.29 L VBG pCO2 53 VBG Oxygen Liters/Min 4 L VBG pO2 91 VBG HCO3 25 VBG O2 Saturation 95.0 VBG Base Excess -2.2 Sodium Potassium Chloride Carbon Dioxide Anion Gap BUN Creatinine Estim Creat Clear Calc Estimated GFR POC Glucose 149 H Random Glucose Lactic Acid Lactic Acid Fup @ 2Hr 2.7 H* Lactic Acid Fup @ 4Hr Calcium Total Bilirubin AST ALT Alkaline Phosphatase Total Creatine Kinase Troponin I High Sens Total Protein Albumin TSH Urine Color Urine Appearance Urine pH Ur Specific [place] Urine Protein Urine Glucose (UA) Urine Ketones Urine Blood Urine Nitrite Ur Leukocyte Esterase Urine RBC Urine WBC Ur Squamous Epith Cells Urine Bacteria 03/25/20 03/25/20 03/25/20 06:48 06:48 11:02 WBC RBC Hgb Hct MCV MCH MCHC RDW Plt Count MPV Immature Gran % (Auto) Neut % (Auto) Lymph % (Auto) [place] % (Auto) Eos % (Auto) Baso % (Auto) Neut # (Auto) Lymph # (Auto) [place] # (Auto) Eos # (Auto) Baso # (Auto) Abs Immat Gran (auto) Absolute Nucleated RBC Nucleated RBC % (auto) PT Whole Blood PT INR Whole Blood INR APTT VBG pH VBG pCO2 VBG Oxygen Liters/Min VBG pO2 VBG HCO3 VBG O2 Saturation VBG Base Excess Sodium 132 L Potassium 5.3 H Chloride 100 Carbon Dioxide 24 Anion Gap 13 BUN 29 H Creatinine 1.42 H Estim Creat Clear Calc 32.7 Estimated GFR 36 POC Glucose Random Glucose 161 H Lactic Acid Lactic Acid Fup @ 2Hr Lactic Acid Fup @ 4Hr 1.6 Calcium 8.2 L Total Bilirubin 0.2 AST 14 ALT 6 Alkaline Phosphatase 51 Total Creatine Kinase Troponin I High Sens 13.3 Total Protein 5.3 L Albumin 3.1 L TSH Urine Color Urine Appearance Urine pH Ur Specific [place] Urine Protein Urine Glucose (UA) Urine Ketones Urine Blood Urine Nitrite Ur Leukocyte Esterase Urine RBC Urine WBC Ur Squamous Epith Cells Urine Bacteria
--- NOTE | 2020-03-25 15:07 | MHC.CM.PN ---
pt lives c her in their home. she says she is independent in her care, she sometimes uses a walker c ambulation and she does have a cleaning person. her is able to help her if she needs it, this will include a ride home at ma as he still drives . she has two adult children that live in the area , they work fulltime and so the patient reports that they are limited in what they can offer her for help. pt has request a ref. be made to [facility] for nsg and home pt at ma. this ref. has been made. pt does not want to go to [facility] at this time. ma plan is home c and jaya. cm to cont. to follow.
[2020-03-25 15:09] LABS: SARS COV2 PCR INHOUSE NEGATIVE (Negative)
[2020-03-27 13:29] LABS: ~Lactic Acid-LAB USE ONLY 2.7 mmol/L (0.5-2.0)
== END 2020-03-25 18:37 | disposition short-term general hospital (02) | DRG 292 ==
LOC: HO.ED 02:40 → HO.ICU 08:38
PROVIDERS: Admitting Provider Anesthesiology; Emergency Provider Student in an Organized Health Care Education/Training Program; PCP Family Medicine; Visit Provider Anesthesiology
DX: I50.82 Biventricular heart failure (principal); N17.9 Acute kidney failure, unspecified; I27.20 Pulmonary hypertension, unspecified; I35.0 Nonrheumatic aortic (valve) stenosis; G20 Parkinson's disease; I95.9 Hypotension, unspecified; F17.210 Nicotine dependence, cigarettes, uncomplicated; Z79.4 Long term (current) use of insulin; Z79.82 Long term (current) use of aspirin; Z79.899 Other long term (current) drug therapy
CPT/HCPCS: 36415; 70450; 71045; 71250; 74176; 80053; 81001; 82550; 82803; 82947; 83605; 84443; 84484; 85025; 85610; 85730; 87040; 87086; 87635; 93005; 93010; 96365; 96367; 96375; 99284; 99285; J0610; J0696